=== PATIENT | female | born 1965 | race Caucasian/White ===

== ENCOUNTER → 2016-12-03 | Outpatient (CLI) | payer OTHER ==
[~2016-12-03] MED LIST: ALBUTEROL0.09 MG/A2 IH; ANAPROX DS550 MG PO; ANTIVERT/2525 MG PO; ASPI-COR81 M1 PO; ATIVAN1 MG PO; AUGMENTIN 875 M1 TAB PO; AVELOX400 MG PO; B-1100 MG PO; CHOLEST; CIPROFLOXACIN500 MG PO; CLARITIN10 MG PO; CYCLOBENZAPRINE10 MG PO; CYCLOBENZAPRINE5 M3 PO; FLEXERIL5 MG PO; GABAPENTIN TAB600 MG PO; HYDROCODONE BIT1 T11 PO; KEFLEX500 MG PO; LANSOPRAZOLE30 MG PO; LORATADINE D PO; LORAZEPAM1 MG PO; MEDROL DOSEPAK4 MG PO; MOTRIN600 MG PO; PERCOCET 325 MG1 TA3 PO; PERCOCET 325 MG1 TA7 PO; PREDNISONE20 M1 PO; PREVACID30 M1 PO; PREVACID30 M3 PO; ROBITUSSIN DM 105 ML PO; SENEXON-S 50 MG1 TAB PO; SENNA8.6 MG PO; TRAMADOL HCL50 MG PO; TRAZODONE50 MG PO; ULTRAM50 MG PO; VICODIN1 TAB PO; ZITHROMAX Z PA250 MG PO
== END | disposition home or self-care (01) ==
LOC: MAMMO 13:00
DX: Z12.31 Encounter for screening mammogram for malignant neoplasm of breast (principal)

== ENCOUNTER → 2016-12-20 | Outpatient (CLI) | payer OTHER | END | disposition home or self-care (01) | LOC: MAMMO 09:30 | DX: N63 Unspecified lump in breast (principal) ==

== ENCOUNTER → 2017-12-03 | Day surgery (SDC) | payer OTHER ==
[~2017-12-03] VITALS: Ht 182.8 cm; Wt 98.0 kg
[~2017-12-03] MED LIST changes: +COLACE100 MG PO
--- NOTE | ~2017-12-03 | O ---
[place], [place] OPERATIVE NOTE NAME: FARAZ SIMS UNIT #: [id number] ROOM: DOCTOR: YO GARCIA MD BIRTHDATE: [birth year] DOS: 12/03/2017 GASTROENDOSCOPIC REPORT INDICATIONS: A 51-year-old patient who has presented with chief complaint of constipation and previous history of bowel perforation. She does not know how what the detail was. The patient with a history of dyspepsia, on Prevacid already. ALLERGIES: No known medication. FAMILY HISTORY: Noncontributory. PAST SURGICAL HISTORY: Appendectomy, bilateral ankle repair. PAST MEDICAL HISTORY: GERD, history of anxiety, oteoarthritis, and fatty liver. SOCIAL HISTORY: Two pack smoker and 6-7 beers per week. PROCEDURE: Today's procedure part of investigation is colonoscopy plus polypectomy. PREMEDICATION: Versed and Diprivan. SCOPE: Olympus folding colonoscope 10L video. REPORT: After putting the patient in left lateral position and application of lubricant to the scope, the scope was introduced. Thereafter, under direct visualization, advanced through the length of colon without difficulty. Base of the cecum explored identified, appendiceal orifice identified and ileocecal valve was defined. A sessile polypoid lesion in the sigmoid colon with piecemeal polypectomy was removed. The patient extubated and tolerated procedure well. IMPRESSION: Sessile polypoid lesion in the sigmoid colon, status post piecemeal polypectomy. PLAN AND DISCUSSION: High fiber fruit diet. ACTIVITY: Ad mitchell. FOLLOWUP: As outpatient. As far as the constipation management is concerned, she is going to be given Colace 100 mg 1 daily. However, she is going to be encouraged to consume more vegetables and fruits in the diet. [place], [place] OPERATIVE NOTE NAME: FARAZ SIMS UNIT #: [id number] ROOM: DOCTOR: YO GARCIA MD BIRTHDATE: [birth year] YO GARCIA MD CM:OPRECORD:OPERATIVE NOTE 1108 [id number] YO GARCIA MD 12/03/17 1318 interface
[2017-12-03 10:22] VITALS: BP 130/84
[2017-12-03 11:05] VITALS: BP 110/67
[2017-12-03 11:35] VITALS: BP 122/76
== END | disposition home or self-care (01) ==
LOC: SDC 11-28 08:00
DX: K63.5 Polyp of colon (principal); Z90.49 Acquired absence of other specified parts of digestive tract; K21.9 Gastro-esophageal reflux disease without esophagitis; F41.9 Anxiety disorder, unspecified; M19.90 Unspecified osteoarthritis, unspecified site; F17.210 Nicotine dependence, cigarettes, uncomplicated; F32.9 Major depressive disorder, single episode, unspecified; J44.9 Chronic obstructive pulmonary disease, unspecified; Z82.49 Family history of ischemic heart disease and other diseases of the circulatory system

== ENCOUNTER → 2018-01-13 | Outpatient (CLI) | payer OTHER | END | disposition home or self-care (01) | LOC: MAMMO 12-31 08:00 | DX: Z12.31 Encounter for screening mammogram for malignant neoplasm of breast (principal) ==

== ENCOUNTER → 2018-01-29 | Outpatient (CLI) | payer OTHER | END | disposition home or self-care (01) | LOC: RAD 14:12 | DX: M25.461 Effusion, right knee (principal); M25.551 Pain in right hip; Z91.81 History of falling ==

== ENCOUNTER 2018-04-08 14:43 | Emergency (ER) | payer OTHER ==
[~2018-04-08] VITALS: Wt 93.4 kg
[2018-04-08 14:53] VITALS: BP 148/84
[2018-04-08] MEDS ORDERED: BENADRYL ALLERG25 M5 PO (15:29)
[2018-04-08] MEDS ORDERED: PREDNISONE20 M1 PO (15:29)
== END 2018-04-08 15:34 | disposition home or self-care (01) ==
LOC: ED 14:43
DX: L25.9 Unspecified contact dermatitis, unspecified cause (principal); J44.9 Chronic obstructive pulmonary disease, unspecified; Z79.899 Other long term (current) drug therapy

== ENCOUNTER 2019-03-28 14:08 | Inpatient (IN) | payer OTHER ==
[~2019-03-28] VITALS: Ht 182.8 cm; Wt 82.9 kg
--- NOTE | ~2019-03-28 | EKG ---
[place], [place] ELECTROCARDIOGRAM REPORT NAME: FARAZ SIMS UNIT #: [id number] ROOM: 412 DOCTOR: EFREN DRAFT REPORT BIRTHDATE: [birth year] [facility] Test Date: 2019-03-28 Test Time: 19:35:07 Pat Name: FARAZ SIMS Department: Room: 412 Gender: F Hand Silvering Supervisor: Cyndi Tam : 1965 Requested By: WASHINGTON ALFRED Order Number: [id number] Reading MD: Evaristo Roberson MD Measurements Intervals [place] Rate: 111 P: 81 HI: 137 QRS: 69 QRSD: 86 T: 63 QT: 338 QTc: 460 Interpretive Statements Sinus tachycardia Low voltage, precordial leads Electronically Signed On 03-30-2019 4:08:15 PDT by Evaristo Roberson MD CM:EKGRPT:ELECTROCARDIOGRAM REPORT 0408 WASHINGOTN ALFRED DO EPIPHANY DRAFT REPORT WASHINGTON ALFRED DO
--- NOTE | ~2019-03-28 | EKG ---
[place], [place] ELECTROCARDIOGRAM REPORT NAME: FARAZ SIMS UNIT #: [id number] ROOM: 412 DOCTOR: EFREN DRAFT REPORT BIRTHDATE: [birth year] [facility] Test Date: 2019-03-28 Test Time: 14:16:03 Pat Name: FARAZ SIMS Department: Room: 412 Gender: F Inking Machine Tender: : 1965 Requested By: WASHINGTON ALFRED Order Number: [id number] Reading MD: Evaristo Roberson MD Measurements Intervals [place] Rate: 95 P: 84 CA: 145 QRS: 61 QRSD: 77 T: 58 QT: 337 QTc: 424 Interpretive Statements Sinus rhythm Baseline wander in lead(s) V6 Electronically Signed On 03-30-2019 4:07:44 PDT by Evaristo Roberson MD CM:EKGRPT:ELECTROCARDIOGRAM REPORT [id number] 0407 WASHINGTON ORTEGA DRAFT REPORT WASHINGTON ALFRED DO
--- NOTE | ~2019-03-28 | EKG ---
[place], [place] ELECTROCARDIOGRAM REPORT NAME: FARAZ SIMS UNIT #: [id number] ROOM: 412 DOCTOR: EFREN DRAFT REPORT BIRTHDATE: [birth year] [facility] Test Date: 2019-03-28 Test Time: 16:54:31 Pat Name: FARAZ SIMS Department: Room: 412 Gender: F Cell Manager: : 1965 Requested By: WASHINGTON ALFRED Order Number: [id number] Reading MD: Evaristo Roberson MD Measurements Intervals [place] Rate: 85 P: 78 OK: 154 QRS: 47 QRSD: 76 T: 58 QT: 379 QTc: 451 Interpretive Statements Sinus rhythm Low voltage, precordial leads Electronically Signed On 03-30-2019 4:08:01 PDT by Evaristo Roberson MD CM:EKGRPT:ELECTROCARDIOGRAM REPORT [id number] WASHINGTON ORTEGA DRAFT REPORT WASHINGTON ALFRED DO
[~2019-03-28 14:08] MED LIST changes: +BENADRYL ALLERG25 M5 PO
[2019-03-28 14:09] VITALS: BP 123/80
[2019-03-28 14:35] LABS: BASO % 0.4 % (0.0-1.0); EOS # 0.3 10*3/uL (0.0-0.4); EOS % 4.6 % (1.0-4.0); HEMOGLOBIN 14.2 g/dl (12.0-16.0); LYMPH # 2.2 10*3/uL (1.3-4.4); LYMPH % 30.1 % (27.0-41.0); MEAN CORPUSCULAR HGB 33.3 pg (27.0-31.0); MEAN CORPUSCULAR HGB CONC 34.6 g/dl (33.0-37.0); MEAN PLATELET VOLUME 10.4 fl (9.6-12.3); MONO # 0.5 10*3/uL (0.1-1.0); MONO % 6.7 % (3.0-9.0); NEUT # 4.2 10*3/uL (2.3-7.9); NEUT % 58.1 % (47.0-73.0); PLATELET COUNT AUTOMATED 251 10*3/uL (130-400); RED BLOOD COUNT 4.27 10*6/uL (4.10-5.10); RED CELL DISTRI WIDTH 11.9 % (0-14.5); WHITE BLOOD COUNT 7.2 10*3/uL (4.8-10.8)
[2019-03-28 14:37] LABS: ABG BASE EXCESS 1.6 mmol/L (-2.0-2.0); ABG HCO3 24.8 mmol/l (22-26); ABG O2 SATURATION 89.1 % (95-97); ARTERIAL BLOOD GAS PCO2 35.7 mmHg (35-45); ARTERIAL BLOOD GAS PH 7.455 (7.35-7.45); ARTERIAL BLOOD GAS PO2 76.1 mmHg (80-90)
[2019-03-28 14:47] LABS: ACT PARTIAL THROMBO TIME 23.8 SECONDS (20.0-32.1); INTERNATIONAL NORM RATIO 0.9 (2.0-3.5)
[2019-03-28 14:51] LABS: ALBUMIN 3.9 gm/dl (3.1-4.5); ALKALINE PHOSPHATASE 70 U/L (45-117); BUN 11 mg/dl (7-24); CHLORIDE 99 mmol/L (98-107); CREATININE 0.85 mg/dL (0.55-1.02); POTASSIUM 3.9 mmol/L (3.5-5.1); SGOT/AST 32 IU/L (3-35); SGPT/ALT 43 U/L (12-78); SODIUM 132 mmol/L (136-145); TOTAL PROTEIN 7.9 gm/dL (6.4-8.2)
[2019-03-28 14:52] LABS: TROPONIN I < 0.015 ng/ml (<0.045)
[2019-03-28 15:06] VITALS: BP 123/80
[2019-03-28 17:20] VITALS: BP 122/108
[2019-03-28] MEDS ORDERED: OMEPRAZOLE40 MG PO (17:39)
[2019-03-28] MEDS ORDERED: BENZONATATE100 M1 PO (17:44)
[2019-03-28 20:00] VITALS: BP 127/69
--- NOTE | 2019-03-28 20:00 | NUR ---
PATIENT LYING IN BED, DENIES ANY SHORTNESS OF BREATH, OR PAIN AT THIS TIME. PATIENT LEFT WITH CALL LIGHT IN REACH.
--- NOTE | 2019-03-28 21:17 | NUR ---
24 HR chart check completed.
--- NOTE | 2019-03-28 23:00 | NUR ---
PATIENT IS RESTING IN BED WITH EASY AND REGULAR RESPERS ON ROOM AIR. ASSESSMENT IS COMPLETE WITH NO C/O OR S/S OF DISTRESS NOTED AT THIS TIME. BED IS LOW, LOCKED, ALARMED, AND CALL LIGHT IS WITHIN REACH. 0000 ATIVAN GIVEN AT THIS TIME AND PATIENT TOLERATED WELL. WILL CONTINUE TO MONITOR.
[2019-03-29] VITALS: BP 120/60
--- NOTE | 2019-03-29 06:19 | NUR ---
PATIENT AROUSES EASILY FOR ADMINISTRATION OF 0600 MEDICATIONS. CALL LIGHT IS WITHIN REACH.
[2019-03-29 06:52] LABS: HEMATOCRIT 41.6 % (37.0-47.0); HEMOGLOBIN 13.9 g/dl (12.0-16.0); LYMPH # 0.5 10*3/uL (1.3-4.4); MEAN CELL VOLUME 96.1 fl (81.0-99.0); MEAN CORPUSCULAR HGB 32.1 pg (27.0-31.0); MEAN CORPUSCULAR HGB CONC 33.4 g/dl (33.0-37.0); MEAN PLATELET VOLUME 10.6 fl (9.6-12.3); MONO # 0.1 10*3/uL (0.1-1.0); MONO % 2.1 % (3.0-9.0); NEUT % 89.6 % (47.0-73.0); PLATELET COUNT AUTOMATED 293 10*3/uL (130-400); RED BLOOD COUNT 4.33 10*6/uL (4.10-5.10); RED CELL DISTRI WIDTH 11.9 % (0-14.5); WHITE BLOOD COUNT 6.7 10*3/uL (4.8-10.8)
[2019-03-29 07:10] LABS: BUN 10 mg/dl (7-24); CHLORIDE 101 mmol/L (98-107); CREATININE 0.77 mg/dL (0.55-1.02); SODIUM 137 mmol/L (136-145)
[2019-03-29 08:00] VITALS: BP 134/66
--- NOTE | 2019-03-29 09:00 | NUR ---
Clinical Resource Nurse in to talk to patient. Patient states lives at home with her boyfriend. There are 4 steps in the home. Physician: Dr. Casey Steele Pharmacy: [facility] Home health services: none Patient's level of ADLs: INDEPENDENT Patient has working utilities: yes DME: nebulizer Follow-up physician's appointment after d/c: she prefers to make her own follow up appt after discharge Does patient want to access PORTAL?: no Discharge plan discussed with patient. She lives at home with her boyfriend, She is independent in her ADLs and ambulation. Discussed home health care services and she denies any home needs at this time. When medically stable she will be discharged to home. Her boyfriend will transport on discharge. WILLA MAYERS
--- NOTE | 2019-03-29 09:00 | NUR ---
IN TO ROOM, PATIENT AWAKE ALERT AND ORIENTED. PLEASANT AND COOPERATIVE WITH CARE. NO SOB NOTED ON 2L NC. ONLY VOICED COMPLAINT IS A HEADACHE. PRN TYLENOL GIVEN. NO S/S OF DISTRESS. BED IN LOWEST LOCKED POSITION AND CALL LIGHT WITHIN REACH. WILL CONTINUE TO MONITOR.
[2019-03-29 12:00] VITALS: BP 138/81
[2019-03-29 16:00] VITALS: BP 116/61
[2019-03-29 20:00] VITALS: BP 117/62
--- NOTE | 2019-03-29 21:08 | NUR ---
RESTING IN BED. PULSE OX 94% ON ROOM AIR. PT. VOICES NO C/O AT THIS TIME. NO DISTRESS NOTED. CALL LIGHT WITHIN REACH.
--- NOTE | 2019-03-30 01:00 | NUR ---
RESTING IN BED WITH EYES CLOSED; ATIVAN GIVEN EARLIER APPARENTLY EFFECTIVE. PT. WEARING 02 VIA N/C AT 2LPM. NO DISTRESS NOTED. CALL LIGHT WITHIN REACH.
[2019-03-30 01:16] VITALS: BP 117/56
--- NOTE | 2019-03-30 06:00 | NUR ---
MEDICATED WITH ATIVAN PER STRAIGHT ORDER. PT. VOICES NO C/O AT THIS TIME. CALL LIGHT WITHIN REACH.
[2019-03-30 08:00] VITALS: BP 142/81
[2019-03-30 12:00] VITALS: BP 142/80
[2019-03-30] MEDS ORDERED: PREDNISONE10 MG PO (12:26)
[2019-03-30] MEDS ORDERED: DOXYCYCLINE100 M3 PO (12:26)
--- NOTE | 2019-03-30 12:43 | NUR ---
MSDIS Discharge instructions reviewed with patient/family. Patient receptive and verbalizes understanding. Follow-up care arranged. Written instructions given to patient/family. DOMINIC COURTNEY
== END 2019-03-30 12:43 | disposition home or self-care (01) | DRG 189 ==
LOC: ED 14:08 → EDHOLD 15:58 → 4E 15:58
PROVIDERS: Internal Medicine; ADMIT Internal Medicine
DX: J96.00 Acute respiratory failure, unspecified whether with hypoxia or hypercapnia (principal); R65.11 Systemic inflammatory response syndrome (SIRS) of non-infectious origin with acute organ dysfunction; J44.1 Chronic obstructive pulmonary disease with (acute) exacerbation; F41.9 Anxiety disorder, unspecified; F17.210 Nicotine dependence, cigarettes, uncomplicated; Z91.81 History of falling; Z82.49 Family history of ischemic heart disease and other diseases of the circulatory system; Z83.3 Family history of diabetes mellitus; Z82.5 Family history of asthma and other chronic lower respiratory diseases; Z79.899 Other long term (current) drug therapy; Z79.52 Long term (current) use of systemic steroids

== ENCOUNTER → 2019-07-20 | Outpatient (CLI) | payer OTHER ==
[~2019-07-20] MED LIST changes: +BENZONATATE100 M1 PO; +DOXYCYCLINE100 M3 PO; +OMEPRAZOLE40 MG PO; +PREDNISONE10 MG PO
== END | disposition home or self-care (01) ==
LOC: US 06-29 15:00
DX: R22.1 Localized swelling, mass and lump, neck (principal)

== ENCOUNTER → 2019-09-15 | Outpatient (CLI) | payer OTHER | END | disposition home or self-care (01) | LOC: MAMMO 10:26 | DX: Z12.31 Encounter for screening mammogram for malignant neoplasm of breast (principal) ==

== ENCOUNTER → 2019-10-05 | Outpatient (CLI) | payer OTHER ==
[2019-10-05 13:58] LABS: BASO % 0.3 % (0.0-1.0); EOS # 0.1 10*3/uL (0.0-0.4); EOS % 1.3 % (1.0-4.0); HEMATOCRIT 43.3 % (37.0-47.0); HEMOGLOBIN 14.3 g/dl (12.0-16.0); LYMPH % 27.5 % (27.0-41.0); MEAN CORPUSCULAR HGB 31.4 pg (27.0-31.0); MEAN PLATELET VOLUME 10.3 fl (9.6-12.3); MONO # 0.5 10*3/uL (0.1-1.0); MONO % 6.3 % (3.0-9.0); NEUT # 4.6 10*3/uL (2.3-7.9); NEUT % 64.3 % (47.0-73.0); PLATELET COUNT AUTOMATED 264 10*3/uL (130-400); RED BLOOD COUNT 4.56 10*6/uL (4.10-5.10); RED CELL DISTRI WIDTH 11.9 % (0-14.5); WHITE BLOOD COUNT 7.2 10*3/uL (4.8-10.8)
[2019-10-05 14:25] LABS: BUN 16 mg/dl (7-24); CHLORIDE 97 mmol/L (98-107); CREATININE 0.96 mg/dL (0.55-1.02); POTASSIUM 4.2 mmol/L (3.5-5.1); SGOT/AST 23 IU/L (3-35); SGPT/ALT 37 U/L (12-78); SODIUM 131 mmol/L (136-145)
[2019-10-05 14:31] LABS: ALKALINE PHOSPHATASE 73 U/L (45-117); FREE T4 0.87 ng/dl (0.76-1.46)
[2019-10-19 07:43] LABS: RHEUMATOID ARTHRITIS FACTOR <10.0 IU/mL (0.0-13.9)
== END | disposition home or self-care (01) ==
LOC: LAB 13:13
PROVIDERS: Internal Medicine
DX: R25.2 Cramp and spasm (principal)

== ENCOUNTER → 2020-01-11 | Outpatient (CLI) | payer OTHER ==
[2020-01-11 13:05] LABS: BUN 12 mg/dl (7-24); CHLORIDE 101 mmol/L (98-107); CREATININE 0.89 mg/dL (0.55-1.02); POTASSIUM 4.3 mmol/L (3.5-5.1); SODIUM 134 mmol/L (136-145)
== END | disposition home or self-care (01) ==
LOC: LAB 11:43
PROVIDERS: Internal Medicine Nephrology
DX: E87.1 Hypo-osmolality and hyponatremia (principal)

== ENCOUNTER → 2021-01-31 | Outpatient (CLI) | payer OTHER | END | disposition home or self-care (01) | LOC: MAMMO 01:56 | PROVIDERS: ATTEND Internal Medicine | DX: Z12.31 Encounter for screening mammogram for malignant neoplasm of breast (principal); N64.89 Other specified disorders of breast ==

== ENCOUNTER 2021-05-15 10:49 | Emergency (ER) | payer OTHER | END 2021-05-15 11:11 | LOC: ED 10:49 | DX: R04.0 Epistaxis (principal); Z53.21 Procedure and treatment not carried out due to patient leaving prior to being seen by health care provider ==

== ENCOUNTER 2021-07-19 20:22 | Emergency (ER) | payer OTHER ==
[2021-07-19 20:35] VITALS: BP 148/91
[2021-07-19] MEDS ORDERED: PRILOSEC20 M1 PO (20:38)
[2021-07-19 20:56] LABS: BASO % 0.3 % (0.0-1.0); EOS # 0.2 10*3/uL (0.0-0.4); EOS % 1.7 % (1.0-4.0); HEMATOCRIT 43.2 % (37.0-47.0); LYMPH # 3.7 10*3/uL (1.3-4.4); MEAN CELL VOLUME 96.6 fl (81.0-99.0); MEAN CORPUSCULAR HGB 32.4 pg (27.0-31.0); MEAN CORPUSCULAR HGB CONC 33.6 g/dl (33.0-37.0); MEAN PLATELET VOLUME 9.6 fl (9.6-12.3); MONO # 0.5 10*3/uL (0.1-1.0); MONO % 6.2 % (3.0-9.0); NEUT # 4.3 10*3/uL (2.3-7.9); NEUT % 49.6 % (47.0-73.0); PLATELET COUNT AUTOMATED 252 10*3/uL (130-400); RED BLOOD COUNT 4.47 10*6/uL (4.10-5.10); RED CELL DISTRI WIDTH 11.8 % (0-14.5); WHITE BLOOD COUNT 8.7 10*3/uL (4.8-10.8)
[2021-07-19 21:22] LABS: BILIRUBIN Negative (Negative); BLOOD Negative (Negative); CLARITY Clear (Clear); COLOR Yellow (Yellow); GLUCOSE Negative (Negative); KETONE Negative (Negative); LEUKO ESTERASE Negative (Negative); NITRITE Negative (Negative); PH 5.5 (4.5-8.0); SPECIFIC GRAVITY <= 1.005 (1.001-1.030); UROBILINOGEN 0.2 E.U./dl (0.0-1.0)
[2021-07-19 21:34] LABS: BACTERIA TRACE
[2021-07-19 22:02] LABS: ALBUMIN 3.3 gm/dl (3.1-4.5); ALKALINE PHOSPHATASE 80 U/L (45-117); BUN 9 mg/dl (7-24); CHLORIDE 98 mmol/L (98-107); CREATININE 0.84 mg/dL (0.55-1.02); LIPASE 102 U/L (73-393); POTASSIUM 3.6 mmol/L (3.5-5.1); SGOT/AST 84 IU/L (3-35); SGPT/ALT 125 U/L (12-78); SODIUM 131 mmol/L (136-145); TOTAL PROTEIN 7.5 gm/dL (6.4-8.2)
[2021-07-19 22:03] LABS: TROPONIN I < 0.015 ng/ml (<0.045)
== END 2021-07-19 22:30 | disposition left against medical advice (07) ==
LOC: ED 20:22
PROVIDERS: Emergency Medicine
DX: R07.9 Chest pain, unspecified (principal); F10.929 Alcohol use, unspecified with intoxication, unspecified; Z79.899 Other long term (current) drug therapy; Y90.9 Presence of alcohol in blood, level not specified

== ENCOUNTER 2021-07-23 14:54 | Observation (INO) | payer OTHER ==
[~2021-07-23] VITALS: Ht 182.8 cm; Wt 82.8 kg
[~2021-07-23 14:54] MED LIST changes: +PRILOSEC20 M1 PO
[2021-07-23 15:06] VITALS: BP 182/87
[2021-07-23 15:42] LABS: BASO % 0.4 % (0.0-1.0); EOS # 0.1 10*3/uL (0.0-0.4); EOS % 0.8 % (1.0-4.0); HEMATOCRIT 44.3 % (37.0-47.0); LYMPH # 2.2 10*3/uL (1.3-4.4); LYMPH % 27.4 % (27.0-41.0); MEAN CELL VOLUME 94.9 fl (81.0-99.0); MEAN CORPUSCULAR HGB 32.5 pg (27.0-31.0); MEAN CORPUSCULAR HGB CONC 34.3 g/dl (33.0-37.0); MEAN PLATELET VOLUME 9.9 fl (9.6-12.3); MONO # 0.5 10*3/uL (0.1-1.0); NEUT # 5.2 10*3/uL (2.3-7.9); NEUT % 65.1 % (47.0-73.0); PLATELET COUNT AUTOMATED 289 10*3/uL (130-400); RED BLOOD COUNT 4.67 10*6/uL (4.10-5.10); RED CELL DISTRI WIDTH 11.7 % (0-14.5)
[2021-07-23 15:53] LABS: ACT PARTIAL THROMBO TIME 24.2 SECONDS (20.0-32.1)
[2021-07-23 16:00] LABS: ALBUMIN 3.7 gm/dl (3.1-4.5); ALKALINE PHOSPHATASE 91 U/L (45-117); BUN 9 mg/dl (7-24); CHLORIDE 101 mmol/L (98-107); CREATININE 0.86 mg/dL (0.55-1.02); POTASSIUM 4.2 mmol/L (3.5-5.1); SGOT/AST 72 IU/L (3-35); SGPT/ALT 123 U/L (12-78); SODIUM 135 mmol/L (136-145); TOTAL PROTEIN 8.2 gm/dL (6.4-8.2)
[2021-07-23 16:02] LABS: TROPONIN I < 0.015 ng/ml (<0.045)
[2021-07-23 21:41] VITALS: BP 144/78
[2021-07-24] MEDS ORDERED: PANTOPRAZOLE SO40 MG PO (09:00)
[2021-07-24] MEDS ORDERED: TOPROL XL25 MG PO (09:00)
[2021-07-24 09:24] VITALS: BP 145/85
== END 2021-07-24 10:15 | disposition home or self-care (01) ==
LOC: ED 14:54 → EDHOLD 16:49
PROVIDERS: Student in an Organized Health Care Education/Training Program; ADMIT Internal Medicine; ATTEND Internal Medicine
DX: R07.89 Other chest pain (principal); K29.70 Gastritis, unspecified, without bleeding; F10.129 Alcohol abuse with intoxication, unspecified; Z20.822 Contact with and (suspected) exposure to COVID-19; R00.2 Palpitations; Z79.899 Other long term (current) drug therapy; F17.210 Nicotine dependence, cigarettes, uncomplicated

== ENCOUNTER → 2022-04-03 | Outpatient (CLI) | payer OTHER ==
[~2022-04-03] MED LIST changes: +PANTOPRAZOLE SO40 MG PO; +TOPROL XL25 MG PO
== END | disposition home or self-care (01) ==
LOC: MAMMO 11:20
PROVIDERS: ATTEND Internal Medicine
DX: Z12.31 Encounter for screening mammogram for malignant neoplasm of breast (principal)

== ENCOUNTER → 2022-08-06 | Day surgery (SDC) | payer MEDICARE, MEDICAID ==
[2022-08-01 14:20] LABS: BASO % 0.4 % (0.0-1.0); EOS # 0.3 10*3/uL (0.0-0.4); EOS % 3.1 % (1.0-4.0); LYMPH # 2.3 10*3/uL (1.3-4.4); LYMPH % 28.9 % (27.0-41.0); MEAN CELL VOLUME 95.1 fl (81.0-99.0); MEAN CORPUSCULAR HGB 32.3 pg (27.0-31.0); MONO # 0.5 10*3/uL (0.1-1.0); MONO % 6.1 % (3.0-9.0); NEUT # 4.9 10*3/uL (2.3-7.9); NEUT % 61.3 % (47.0-73.0); PLATELET COUNT AUTOMATED 281 10*3/uL (130-400); RED BLOOD COUNT 4.73 10*6/uL (4.10-5.10); RED CELL DISTRI WIDTH 11.7 % (0-14.5)
[2022-08-01 14:30] LABS: ACT PARTIAL THROMBO TIME 24.6 SECONDS (20.0-32.1)
[~2022-08-06] VITALS: Ht 182.8 cm; Wt 108.0 kg
[2022-08-06] VITALS (7 sets, daily range): BP systolic 130–165; BP diastolic 79–143
[~2022-08-06] MED LIST changes: +ALBUTEROL2.5 MG/0.5 INH; +ATIVAN0.5 MG PO; +PROVENTIL HFA6.7 GM IH
== END | disposition home or self-care (01) ==
LOC: SDC 07-26 11:00
PROVIDERS: ATTEND Specialist
DX: R04.0 Epistaxis (principal); F41.9 Anxiety disorder, unspecified; F32.A Depression, unspecified; J44.9 Chronic obstructive pulmonary disease, unspecified; F17.210 Nicotine dependence, cigarettes, uncomplicated; Z79.899 Other long term (current) drug therapy

== ENCOUNTER → 2022-09-18 | Outpatient (CLI) | payer MEDICARE, MEDICAID ==
[~2022-09-18] MED LIST changes: +CARDIZEM CD120 M2 PO; +CEFUROXIME AXE500 MG PO; +LOPRESSOR25 MG PO; +VIBRAMYCIN100 MG PO; +XARELTO20 M1 PO
== END | disposition home or self-care (01) ==
LOC: RAD 09:50
PROVIDERS: ATTEND Internal Medicine
DX: J84.9 Interstitial pulmonary disease, unspecified (principal); J15.212 Pneumonia due to Methicillin resistant Staphylococcus aureus

== ENCOUNTER → 2023-02-27 | Outpatient (CLI) | payer MEDICARE, MEDICAID | END | disposition home or self-care (01) | LOC: LAB 11:17 | PROVIDERS: ATTEND Internal Medicine | DX: E53.8 Deficiency of other specified B group vitamins (principal) ==

== ENCOUNTER 2023-07-02 11:29 | Emergency (ER) | payer MEDICARE, MEDICAID ==
[~2023-07-02] VITALS: Ht 182.8 cm; Wt 103.9 kg
[2023-07-02 12:18] LABS: BASO % 0.4 % (0.0-1.0); EOS # 0.1 10*3/uL (0.0-0.4); EOS % 1.6 % (1.0-4.0); HEMATOCRIT 41.5 % (37.0-47.0); LYMPH # 2.3 10*3/uL (1.3-4.4); LYMPH % 28.7 % (27.0-41.0); MEAN CORPUSCULAR HGB 31.9 pg (27.0-31.0); MEAN CORPUSCULAR HGB CONC 34.7 g/dl (33.0-37.0); MEAN PLATELET VOLUME 9.9 fl (9.6-12.3); MONO # 0.5 10*3/uL (0.1-1.0); MONO % 6.5 % (3.0-9.0); NEUT # 5.1 10*3/uL (2.3-7.9); NEUT % 62.6 % (47.0-73.0); PLATELET COUNT AUTOMATED 289 10*3/uL (130-400); RED BLOOD COUNT 4.51 10*6/uL (4.10-5.10); RED CELL DISTRI WIDTH 11.9 % (0-14.5); WHITE BLOOD COUNT 8.2 10*3/uL (4.8-10.8)
[2023-07-02 12:29] LABS: ACT PARTIAL THROMBO TIME 26.2 SECONDS (20.0-32.1)
[2023-07-02 12:42] LABS: ALKALINE PHOSPHATASE 82 U/L (46-116); BUN 9 mg/dl (9-23); CHLORIDE 103 mmol/L (98-107); POTASSIUM 4.3 mmol/L (3.4-5.1); SGPT/ALT 35 U/L (5-49); TOTAL PROTEIN 7.5 gm/dL (6.0-8.0)
[2023-07-02 14:19] VITALS: BP 128/67
[2023-07-02] MEDS ORDERED: ONDANSETRON4 MG SL (14:51)
== END 2023-07-02 15:06 | disposition home or self-care (01) ==
LOC: ED 11:29
PROVIDERS: Nurse Practitioner Family
DX: R07.89 Other chest pain (principal); R03.0 Elevated blood-pressure reading, without diagnosis of hypertension; R06.02 Shortness of breath; R11.0 Nausea; R51.9 Headache, unspecified; F32.A Depression, unspecified; F41.9 Anxiety disorder, unspecified; I48.91 Unspecified atrial fibrillation; E87.1 Hypo-osmolality and hyponatremia; J44.9 Chronic obstructive pulmonary disease, unspecified; Z90.49 Acquired absence of other specified parts of digestive tract; Z98.890 Other specified postprocedural states; Z87.891 Personal history of nicotine dependence

== ENCOUNTER → 2023-07-28 | Outpatient (CLI) | payer MEDICARE, MEDICAID ==
[~2023-07-28] MED LIST changes: +ONDANSETRON4 MG SL
== END | disposition home or self-care (01) ==
LOC: MAMMO 09:58
PROVIDERS: ATTEND Internal Medicine
DX: Z12.31 Encounter for screening mammogram for malignant neoplasm of breast (principal)

== ENCOUNTER 2023-07-29 11:34 | Emergency (ER) | payer MEDICARE, MEDICAID | END 2023-07-29 12:04 | disposition left against medical advice (07) | LOC: ED 11:34 | DX: S81.812A Laceration without foreign body, left lower leg, initial encounter (principal); Z53.21 Procedure and treatment not carried out due to patient leaving prior to being seen by health care provider; X58.XXXA Exposure to other specified factors, initial encounter; Y93.89 Activity, other specified; Y92.89 Other specified places as the place of occurrence of the external cause; Y99.8 Other external cause status ==

== ENCOUNTER → 2023-11-12 | Outpatient (CLI) | payer MEDICARE, MEDICAID ==
[~2023-11-12] MED LIST changes: +LOSARTAN POTASS25 M1 PO; +Regadenoson 0.4 MG/5 ML SYR IV ONE; +Technetium Tc 99M Tetrofosmi 0.23 MG KIT IJ SCH
== END | disposition home or self-care (01) ==
LOC: CARD 03:17
PROVIDERS: ATTEND Internal Medicine
DX: I48.20 Chronic atrial fibrillation, unspecified (principal); R94.31 Abnormal electrocardiogram [ECG] [EKG]

== ENCOUNTER 2023-12-19 10:57 | Emergency (ER) | payer MEDICARE, MEDICAID ==
[~2023-12-19] VITALS: Ht 182.8 cm; Wt 103.4 kg
[~2023-12-19 10:57] MED LIST changes: -Regadenoson 0.4 MG/5 ML SYR IV ONE; -Technetium Tc 99M Tetrofosmi 0.23 MG KIT IJ SCH
[2023-12-19 11:04] VITALS: BP 155/69
[2023-12-19] MEDS ORDERED: VALTREX500 MG PO (11:21)
[2023-12-19] MEDS ORDERED: ONDANSETRON4 MG SL (11:21)
[2023-12-19] MEDS ORDERED: ZITHROMAX250 MG PO (11:21)
[2023-12-19] MEDS ORDERED: Ondansetron Hydrochloride 4 MG TAB PO ONE (11:25)
== END 2023-12-19 11:36 | disposition home or self-care (01) ==
LOC: ED 10:57
DX: J32.9 Chronic sinusitis, unspecified (principal); R11.0 Nausea; F32.A Depression, unspecified; F41.9 Anxiety disorder, unspecified; J44.9 Chronic obstructive pulmonary disease, unspecified; J45.909 Unspecified asthma, uncomplicated; I48.91 Unspecified atrial fibrillation; F10.10 Alcohol abuse, uncomplicated; Z90.49 Acquired absence of other specified parts of digestive tract; Z98.890 Other specified postprocedural states

== ENCOUNTER → 2024-03-08 | Outpatient (CLI) | payer MEDICARE, MEDICAID ==
[~2024-03-08] MED LIST changes: +VALTREX500 MG PO; +ZITHROMAX250 MG PO
== END | disposition home or self-care (01) ==
LOC: US 03-01 14:00
PROVIDERS: ATTEND Internal Medicine
DX: M79.604 Pain in right leg (principal); M79.605 Pain in left leg; J44.9 Chronic obstructive pulmonary disease, unspecified; J45.909 Unspecified asthma, uncomplicated; Z72.0 Tobacco use; R20.0 Anesthesia of skin; R20.2 Paresthesia of skin

== ENCOUNTER → 2024-03-11 | Outpatient (CLI) | payer MEDICARE, MEDICAID | END | disposition home or self-care (01) | LOC: RAD 12:14 | PROVIDERS: ATTEND Internal Medicine | DX: M47.817 Spondylosis without myelopathy or radiculopathy, lumbosacral region (principal); M48.07 Spinal stenosis, lumbosacral region ==

== ENCOUNTER 2024-05-11 14:24 | Inpatient (IN) | payer MEDICARE, MEDICAID ==
[~2024-05-11] VITALS: Ht 182.8 cm; Wt 104.3 kg
[2024-05-11 14:40] VITALS: BP 181/81
[2024-05-11] MEDS ORDERED: methylPREDNISolone sod succ 40 MG VIAL IV ONE (14:40)
[2024-05-11] MEDS ORDERED: ASPIRIN, CHEWABLE 81 MG TAB PO ONE (14:40)
[2024-05-11] MEDS ORDERED: Albuterol Sulf/Ipratropium 3 ML VIAL NEB ONE (14:40)
[2024-05-11 14:58] LABS: BASO % 0.2 % (0.0-1.0); EOS % 0.8 % (1.0-4.0); HEMATOCRIT 38.3 % (37.0-47.0); LYMPH # 1.5 10*3/uL (1.3-4.4); LYMPH % 28.4 % (27.0-41.0); MEAN CELL VOLUME 90.1 fl (81.0-99.0); MEAN CORPUSCULAR HGB 30.1 pg (27.0-31.0); MEAN CORPUSCULAR HGB CONC 33.4 g/dl (33.0-37.0); MEAN PLATELET VOLUME 9.1 fl (9.6-12.3); MONO # 0.3 10*3/uL (0.1-1.0); MONO % 6.1 % (3.0-9.0); NEUT # 3.4 10*3/uL (2.3-7.9); NEUT % 64.3 % (47.0-73.0); PLATELET COUNT AUTOMATED 232 10*3/uL (130-400); RED BLOOD COUNT 4.25 10*6/uL (4.10-5.10); RED CELL DISTRI WIDTH 12.6 % (0-14.5); WHITE BLOOD COUNT 5.2 10*3/uL (4.8-10.8)
[2024-05-11 15:19] LABS: ACT PARTIAL THROMBO TIME 33.3 SECONDS (20.0-32.1); ALKALINE PHOSPHATASE 89 U/L (46-116); BUN 8 mg/dl (9-23); CHLORIDE 97 mmol/L (98-107); SGPT/ALT 33 U/L (5-49); TOTAL PROTEIN 7.2 gm/dL (6.0-8.0)
[2024-05-11] MEDS ORDERED: Ondansetron Hydrochloride 4 MG/2 ML VIAL IV ONE (15:30)
[2024-05-11 16:00] VITALS: BP 131/62
[2024-05-11] MEDS ORDERED: Lactated Ringer's Solution 1,000 ML IV SCH (16:10)
[2024-05-11] MEDS ORDERED: ATORVASTATIN CA10 M1 PO (16:15)
[2024-05-11] MEDS ORDERED: ELIQUIS5 M1 PO (16:16)
[2024-05-11] MEDS ORDERED: Albuterol Sulf/Ipratropium 3 ML VIAL NEB SCH (17:45)
[2024-05-11] MEDS ORDERED: Ceftriaxone Sodium 10 ML IV ONE (17:50)
[2024-05-11] MEDS ORDERED: APIXABAN 5 MG TAB PO SCH (18:00)
[2024-05-11] MEDS ORDERED: Pantoprazole Sodium 20 MG TAB PO SCH (18:00)
[2024-05-11] MEDS ORDERED: ATORVASTATIN CALCIUM 10 MG TAB PO SCH (18:00)
[2024-05-11 20:17] VITALS: BP 152/65
[2024-05-11] MEDS ORDERED: methylPREDNISolone sod succ 40 MG VIAL IV SCH (22:00)
[2024-05-11] MEDS ORDERED: LORazepam 0.5 MG TAB PO SCH (22:00)
[2024-05-11] MEDS ORDERED: Metoprolol Tartrate 25 MG TAB PO SCH (22:00)
[2024-05-12] MEDS ORDERED: SODIUM CHLORIDE 0.9% 1,000 ML IV ONE (06:35)
[2024-05-12 06:56] VITALS: BP 132/67
[2024-05-12] MEDS ORDERED: ACETAMINOPHEN 325 MG TAB PO PRN (07:45)
[2024-05-12 09:36] VITALS: BP 134/59
[2024-05-12] MEDS ORDERED: Losartan Potassium 25 MG TAB PO SCH (10:00)
[2024-05-12] MEDS ORDERED: DILTIAZEM CD 120 MG CAP PO SCH (10:00)
[2024-05-12] MEDS ORDERED: Sennosides A and B 8.6 MG TAB PO PRN (14:30)
[2024-05-12 17:30] VITALS: BP 160/71
[2024-05-12] MEDS ORDERED: Ceftriaxone Sodium 1 GM in SYRINGE INFUSION 10 ML IV SCH (18:00)
[2024-05-12] MEDS ORDERED: AZITHROMYCIN 250 ML IV SCH (19:00)
[2024-05-12 20:00] VITALS: BP 159/75
[2024-05-13] VITALS: BP 154/66
[2024-05-13] MEDS ORDERED: SODIUM CHLORIDE 0.9% 1,000 ML IV ONE (00:55)
[2024-05-13 08:00] VITALS: BP 159/74
[2024-05-13 12:00] VITALS: BP 160/70
[2024-05-13 12:27] LABS: ALKALINE PHOSPHATASE 71 U/L (46-116); BUN 14 mg/dl (9-23); CHLORIDE 98 mmol/L (98-107); POTASSIUM 4.7 mmol/L (3.4-5.1); SGPT/ALT 36 U/L (5-49); TOTAL PROTEIN 7.4 gm/dL (6.0-8.0)
[2024-05-13] MEDS ORDERED: PERFLUTREN PROTEIN-A MICROSPHR 3 ML VIAL IV ONE (14:11)
[2024-05-13 16:00] VITALS: BP 140/68
[2024-05-13] MEDS ORDERED: MEDROL DOSEPAK4 MG PO (18:47)
[2024-05-13] MEDS ORDERED: VIBRA-TAB100 MG PO (18:47)
== END 2024-05-13 20:06 | disposition home or self-care (01) | DRG 178 ==
LOC: ED 14:24 → 4E 16:23 → EDHOLD 16:23 → 4E 05-12 17:08
PROVIDERS: Emergency Medicine; Internal Medicine Nephrology; ADMIT Internal Medicine; ATTEND Internal Medicine
DX: U07.1 COVID-19 (principal); E87.1 Hypo-osmolality and hyponatremia; J44.1 Chronic obstructive pulmonary disease with (acute) exacerbation; R55 Syncope and collapse; I10 Essential (primary) hypertension; I48.91 Unspecified atrial fibrillation; F17.210 Nicotine dependence, cigarettes, uncomplicated; S39.012A Strain of muscle, fascia and tendon of lower back, initial encounter; X58.XXXA Exposure to other specified factors, initial encounter; Y93.89 Activity, other specified; Y92.89 Other specified places as the place of occurrence of the external cause; Y99.8 Other external cause status; Z71.6 Tobacco abuse counseling; Z79.51 Long term (current) use of inhaled steroids; Z79.899 Other long term (current) drug therapy

== ENCOUNTER 2025-02-11 09:53 | Emergency (ER) | payer MEDICARE, MEDICAID ==
[~2025-02-11] VITALS: Ht 182.8 cm; Wt 103.4 kg
[~2025-02-11 09:53] MED LIST changes: +ATORVASTATIN CA10 M1 PO; +ELIQUIS5 M1 PO; +VIBRA-TAB100 MG PO
[2025-02-11 10:01] VITALS: BP 176/77
== END 2025-02-11 11:17 | disposition home or self-care (01) ==
LOC: ED 09:53
DX: I10 Essential (primary) hypertension (principal); J44.1 Chronic obstructive pulmonary disease with (acute) exacerbation; F32.A Depression, unspecified; F41.9 Anxiety disorder, unspecified; Z79.899 Other long term (current) drug therapy; Z98.890 Other specified postprocedural states

== ENCOUNTER 2025-03-14 14:24 | Emergency (ER) | payer MEDICARE, MEDICAID ==
[~2025-03-14] VITALS: Ht 182.8 cm; Wt 108.0 kg
[2025-03-14 14:33] VITALS: BP 182/72
[2025-03-14] MEDS ORDERED: SODIUM CHLORIDE 0.9% 1,000 ML IV ONE (14:50)
[2025-03-14 15:04] LABS: BASO # 0.0 10*3/uL (0.0-0.1); BASO % 0.3 % (0.0-1.0); EOS # 0.1 10*3/uL (0.0-0.4); EOS % 0.7 % (1.0-4.0); MEAN CELL VOLUME 95.4 fl (81.0-99.0); MEAN CORPUSCULAR HGB 31.4 pg (27.0-31.0); MEAN PLATELET VOLUME 9.3 fl (9.6-12.3); MONO # 0.6 10*3/uL (0.1-1.0); MONO % 5.9 % (3.0-9.0); NEUT # 7.5 10*3/uL (2.3-7.9); NEUT % 72.5 % (47.0-73.0); NUCLEATED RED BLOOD CELL 0.0 % (0.0-0.0); NUCLEATED RED BLOOD CELL 0.0 10*3/uL (0.0-0.0); PLATELET COUNT AUTOMATED 293 10*3/uL (130-400); RED CELL DISTRI WIDTH 11.9 % (0-14.5)
[2025-03-14 15:14] LABS: ACT PARTIAL THROMBO TIME 26.5 SECONDS (20.0-32.1)
[2025-03-14 15:22] LABS: BUN 8 mg/dl (9-23)
[2025-03-14] MEDS ORDERED: Albuterol Sulf/Ipratropium 3 ML VIAL NEB ONE (15:30)
[2025-03-14] MEDS ORDERED: PREDNISONE20 M1 PO (17:41)
[2025-03-14] MEDS ORDERED: AVPAK AZITHROM250 MG PO (17:41)
== END 2025-03-14 17:50 | disposition home or self-care (01) ==
LOC: ED 14:24
PROVIDERS: Internal Medicine
DX: J44.9 Chronic obstructive pulmonary disease, unspecified (principal); R07.89 Other chest pain; F10.90 Alcohol use, unspecified, uncomplicated; Y90.9 Presence of alcohol in blood, level not specified

== ENCOUNTER → 2025-05-19 | Outpatient (CLI) | payer MEDICARE, MEDICAID ==
[~2025-05-19] MED LIST changes: +AVPAK AZITHROM250 MG PO
== END | disposition home or self-care (01) ==
LOC: MAMMO 09:34
PROVIDERS: ATTEND Internal Medicine
DX: Z12.31 Encounter for screening mammogram for malignant neoplasm of breast (principal)